=== PATIENT | female | born 1940 | race Caucasian/White ===

== ENCOUNTER 2019-08-24 16:09 | Emergency (ER) | payer MEDICARE ==
[~2019-08-24] VITALS: Ht 165.1 cm; Wt 68.0 kg
[2019-08-24] MEDS ORDERED: SERTRALINE HCL50 MG PO (16:52)
[2019-08-24] MEDS ORDERED: ATORVASTATIN CA10 MG PO (16:52)
[2019-08-24] MEDS ORDERED: ASPIR 8181 MG PO (16:52)
[2019-08-24] MEDS ORDERED: CIPRO500 MG PO (19:22)
[2019-08-24] MEDS ORDERED: FLAGYL500 MG PO (19:22)
== END 2019-08-24 19:35 | disposition home or self-care (01) ==
LOC: ED 16:09
DX: K57.32 Diverticulitis of large intestine without perforation or abscess without bleeding (principal); Z79.899 Other long term (current) drug therapy; Z79.82 Long term (current) use of aspirin
CPT/HCPCS: 74177; 80053; 81001; 85025; 96360; 96361; 99284-25; J7030; Q9967